=== PATIENT | male | born 1950 | race Caucasian/White ===

== ENCOUNTER → 2016-08-12 | Outpatient (CLI) | payer OTHER ==
[~2016-08-12] MED LIST: ASPEC325 PO; CLOP1TAB15 PO; CRDCD180 PO; HYDC25 PO; LISI40TA PO; PRAV40TA3 PO
--- NOTE | 2016-08-12 12:33 | DIAGNOSTIC IMAGING REPORT ---
CAROTID ARTERY ULTRASOUND CLINICAL HISTORY: Arteriosclerosis of carotid artery. COMPARISON STUDY: Carotid ultrasound May 13, 2014 and CTA of the neck July 23, 2015. TECHNIQUE: Real-time, grayscale, and color Doppler sonography of the carotid and vertebral arteries was performed. Images were viewed in the transverse and longitudinal planes. FINDINGS: There is extensive atherosclerotic plaque. Velocity measurements are listed below. COMMON CAROTID PEAK SYSTOLIC VELOCITY (CM/S): RIGHT 59 LEFT 101 ICA PEAK SYSTOLIC VELOCITY (CM/S): RIGHT 13 LEFT 187 There is diminished flow within the right internal carotid artery. By sonography, is difficult to differentiate vessel occlusion from slow flow. This appears to represent a change since CT of July 23, 2015 and is a new finding from ultrasound May 13, 2014. Antegrade flow is seen in the vertebral arteries. The external carotid arteries are patent but a elevated peak systolic velocity of 286 cm/s was noted within the right external carotid artery. Blood pressure in the right arm measured 181/100. Blood pressure in the left arm measured 179/95. IMPRESSION: 1. Minimal, if any, flow within the right internal carotid, a new finding since prior exams. By sonography, it is difficult to differentiate vessel occlusion from minimal flow due to severe stenosis. A CTA of the neck could be obtained. 2. Findings suggestive of 50-69% stenosis of the proximal left internal carotid artery. Electronically signed by: Mike Salinas M.D. 08/12/2016 12:31 PM Dictated Date/Time: 08/12/2016 12:25 PM
--- NOTE | 2016-08-18 07:13 | CODING QUERY MEDICAL NECESSITY ---
SUPPORTING DIAGNOSIS NEEDED A supporting diagnosis is required for the test/procedure performed on this patient in order for us to be reimbursed by the patient's insurance. Please provide a supporting diagnosis for the following test/procedure listed below next to the test name along with your signature. *If there is no additional diagnosis for this patient that would support the following test/procedure please document that below next to the test/procedure. Test(s)/Procedure(s) that require a supporting diagnosis: * CAROTID DOPPLR DUPLEX NECK DIAGNOSIS: * DOS: 08/12/16 Provider Signature: Date: Thank you Deepthi Ortega Health Information Management Once completed, please kindly fax back to [phone] For questions please call [phone]
== END | disposition home or self-care (01) ==
LOC: C.ULTRBC 11:51
PROVIDERS: ATTEND Internal Medicine
DX: I65.29 Occlusion and stenosis of unspecified carotid artery (principal)

== ENCOUNTER → 2016-08-18 | Outpatient (CLI) | payer OTHER ==
[~2016-08-18] MED LIST changes: +OPTIRAY 320 IV PRN
--- NOTE | 2016-08-18 09:07 | DIAGNOSTIC IMAGING REPORT ---
NECK CTA HISTORY: Carotid artery stenosis. Follow-up. TECHNIQUE: Multiaxial CT images of the neck were performed following the intravenous administration of contrast to evaluate the major cervical vessels. Maximum intensity projection images were also obtained. All measurements were calculated based on NASCET criteria. COMPARISON STUDY: Neck CTA 07/23/2015. Carotid Doppler 08/12/2016. FINDINGS: The aortic arch and proximal great vessels are widely patent. Bilateral common carotid arteries are patent. Mild stenosis at the origin of the right external carotid artery. The right internal carotid artery is completely occluded. No significant stenosis within the left external carotid artery. Approximately 60 % focal stenosis at the origin of the left internal carotid artery/carotid bulb. This is best seen on axial image 266 of 413. The mid to distal left internal carotid artery is patent. Multifocal moderate stenosis of the focal moderate to severe stenosis within the distal left vertebral artery. The left vertebral artery is hypoplastic in comparison to the right. Mild calcified plaque within the dominant proximal right vertebral artery without significant stenosis. Moderate focal stenosis within the distal right vertebral artery of approximately 60-70%. This is similar to the prior study. Degenerative changes within the cervical spine. The visualized lungs are clear. No cervical lymphadenopathy. IMPRESSION: 1. Complete occlusion of the right internal carotid artery which corresponds to the recent carotid Doppler study abnormality. This is new from the 2016 CTA. 2. Approximately 60% focal stenosis at the origin of the left internal carotid artery which is not significantly changed. 3. Moderate focal stenosis within the distal right vertebral artery and multifocal moderate to severe stenosis within the distal left vertebral artery. This is not significantly changed. Electronically signed by: Jim White M.D. 08/18/2016 9:05 AM Dictated Date/Time: 08/18/2016 8:43 AM
== END | disposition home or self-care (01) ==
LOC: C.CTS 07:45
PROVIDERS: ATTEND Internal Medicine
DX: I65.23 Occlusion and stenosis of bilateral carotid arteries (principal); I77.1 Stricture of artery

== ENCOUNTER → 2016-08-22 | Outpatient (CLI) | payer OTHER ==
[~2016-08-22] MED LIST changes: -OPTIRAY 320 IV PRN
[2016-08-22 12:19] LABS: BLOOD UREA NITROGEN 14 mg/dl (7-18); BUN/CREATININE RATIO 14.7 (10-20); CALCIUM 8.9 mg/dl (8.5-10.1); CARBON DIOXIDE 30 mmol/L (21-32); CHLORIDE 102 mmol/L (98-107); CREATININE 0.98 mg/dl (0.60-1.40); GLUCOSE 145 mg/dl (70-99); POTASSIUM 3.1 mmol/L (3.5-5.1); SODIUM 140 mmol/L (136-145)
== END | disposition home or self-care (01) ==
LOC: C.LABBFT 07:48
PROVIDERS: ATTEND Internal Medicine
DX: I10 Essential (primary) hypertension (principal); E11.9 Type 2 diabetes mellitus without complications

== ENCOUNTER → 2017-02-20 | Outpatient (CLI) | payer OTHER ==
--- NOTE | 2017-02-20 10:36 | DIAGNOSTIC IMAGING REPORT ---
ULTRASOUND OF THE CAROTID ARTERIES CLINICAL HISTORY: I65.29 Arteriosclerosis of carotid ogrvel4D F.UP., CTA 08-19-16 COMPARISON STUDY: 08/12/2016 TECHNIQUE: Real-time, grayscale, and color Doppler sonography of the carotid arteries was performed. Imaging reviewed in the transverse and longitudinal planes. NASCET criteria was utilized for stenosis calcification. FINDINGS: There is mild to moderate atherosclerotic plaque present . No flow is visualized within the right internal carotid artery. The peak systolic velocity within the right common carotid artery was 60 cm/s. The peak systolic velocity within the left internal carotid artery is 184 cm/sec. The systolic velocity ratio left internal to common carotid artery is 1.9. Antegrade flow is seen in the vertebral arteries. The external carotid arteries are patent. Blood pressure in the right arm measured 158 mm/Hg. Blood pressure in the left arm measured 149 mm/Hg. IMPRESSION: 1. Occlusion of the right internal carotid artery 2. 50-69% stenosis of the right internal carotid artery. Electronically signed by: Gurpreet Julian M.D. 02/20/2017 10:34 AM Dictated Date/Time: 02/20/2017 10:32 AM
== END | disposition home or self-care (01) ==
LOC: C.ULTR 09:34
PROVIDERS: ATTEND Surgery
DX: I65.29 Occlusion and stenosis of unspecified carotid artery (principal)

== ENCOUNTER 2024-11-26 07:00 | Inpatient (IN) ==
--- NOTE | 2024-11-20 16:12 | Anesthesiology Consultation ---
Date of Service November 20, 2024 Assessment & Plan (1) Encounter for pre-operative examination: Plan - check BSG am DOS. - PCP clearance 10/29/24 MN: "...He is acceptable risk for surgery. Does carry above average risk for infection because of diabetes which is improved from prior levels. He has cardiac workup he notes. Noted known aortic stenosis. No difficulties getting up 2 flights of steps. No contraindications to procedure... Increased pain and swelling, with resolution redness, notes he gets gout flairs in right knee. Suspect gout flair, we will get uric acid level to ensure proper titration of his allopurinol. We will get orthopedic referral as well. Recommend to use soft brace for stability. 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 Chart Review Chart Review: Acceptable Risk for Surgery and Patient NOT seen in Pre Admission Testing History Surgery Operation Date: 11/26/24 12:30 Proposed Procedures p Left Transcarotid Artery Revascularization - Jamshid Cat MD Height/Weight Height: 5 ft 9 in Weight: 92.986 kg Allergies Allergy/AdvReac Type Severity Reaction Status Date / Time bee venom protein (honey bee) Allergy Unknown Unknown Rxn Verified 11/20/24 15:20 Iodinated Contrast Media Allergy nausea, Verified 11/20/24 15:20 "made him stagger" Medications Home Medications Medication Instructions Recorded Confirmed Last Taken aspirin 81 mg tablet,delayed 81 mg PO QAM 02/25/22 11/20/24 Unknown release metformin 1,000 mg tablet 1,000 mg PO BIDWMEAL #180 tabs 08/02/24 11/20/24 Unknown mecobalamin (vitamin B12) 1,000 1,000 mcg PO DAILY 08/06/24 11/20/24 Unknown mcg chewable tablet spironolactone 25 mg tablet 25 mg PO QAM #90 tabs 09/30/24 11/20/24 Unknown olmesartan 40 mg tablet 40 mg PO DAILY #90 tabs 10/24/24 11/20/24 Unknown allopurinol 300 mg tablet 300 mg PO DAILY #90 tabs 10/31/24 11/20/24 Unknown diltiazem HCl 90 mg tablet 180 mg PO BID 11/20/24 11/20/24 Unknown glipizide 2.5 mg tablet, extended 2.5 mg PO QPM 11/20/24 11/20/24 Unknown release 24 hr rosuvastatin 20 mg tablet 20 mg PO QPM 11/20/24 11/20/24 Unknown Past Medical History Medical History (Updated 11/20/24 @ 16:11 by Kailyn Teresa PA-C) Arteriosclerosis of carotid artery "right ICA chronic occlusion, and severe left ICA occlusion" per [facility] vascular record Diabetes mellitus, 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 History of hypertension History of TIA (transient ischemic attack) (1999) no residual effects Hx of aortic valve stenosis moderate Hx of gout Hx of hypercholesterolemia Past Family History Family History Father Hypertension Hyperlipidemia Uncle Diabetes Denies family history of Ovarian cancer Prostate cancer Coronary heart disease Myocardial infarction Breast cancer Lung cancer Colorectal cancer Past Surgical History Surgical History No history of previous surgery Social History Smoking Status: Former smoker tobacco type: cigarettes Do You Dip or Chew Tobacco: Yes (occasional chew; advised) Smoking End Date: Hx Alcohol Use: Yes Alcohol type: beer alcohol intake frequency: other Alcohol Intake Frequency Comment: 1-2 beers/month Hx Substance Use: No substance use type: does not use Lab Results Anesthesia Preop Results Results Anesthesia Widget: WBC 12.24 K/ul (4.8-10.8) H 10/29/24 Hgb 12.8 g/dl (14.0-18.0) L 10/29/24 Hct 39.3 % (42.0-52.0) L 10/29/24 Plt 250 K/uL (130-400) 10/29/24 Na 136 mmol/L (136-145) 10/24/24 K 4.7 mmol/L (3.5-5.1) 10/24/24 Cl 104 mmol/L (98-107) 10/24/24 CO2 25 mmol/L (21-32) 10/24/24 BUN 23 mg/dl (6-23) 10/24/24 Creat 1.10 mg/dl (0.6-1.4) 10/24/24 Glucose Level 160 mg/dl (70-99(Fasting)) H 10/24/24 PT 10.0 Seconds (9.0-12.0) 10/24/24 PTT 25 Seconds (21-31) 10/24/24 INR 0.9 (0.9-1.1) 10/24/24 HA1c 8.0 % (4.5-5.6) H 10/22/24 Blood Type O Positive 10/24/24 Antibody Screen NEGATIVE 10/24/24 Testing Electrocardiogram Date: 10/24/24 Sinus bradycardia, rate 54 bpm RBBB Chest X-Ray Date: 10/24/24 No acute findings. Echocardiogram Date: 11/04/24 EF 60-65% Normal LV wall motion Moderate valvular aortic stenosis (ILIANA 1.2 cm2, mean pressure gradient 25 mmHg) Borderline LVH and RVH Mild pulmonary regurgitation Grade I diastolic dysfunction Other Testing Neck CTA 10/22/24 1. Chronic occlusion of the right internal carotid artery. 2. Atherosclerosis of the left carotid bulb causes 70% stenosis at the origin of the left ICA. 3. Progressively worsened atherosclerosis involves the V4 segments of the vertebral arteries causing multifocal high-grade stenoses. Carotid doppler 07/09/24 1. Severe variable-sized calcified and soft plaques are again seen along bilateral common carotid arteries, carotid bulb, and their branches. 2. Again noted chronic occlusion of right ICA. 3. Severe stenosis of the left ICA is again noted with more than 70% stenosis. 4. Moderate stenosis of bilateral external carotid arteries is again seen. 5. CT angiography correlation is suggested. 6. No gross interval changes are seen, as compared to the prior study.
[2024-11-26] MEDS ORDERED: LIDOCAINE 2% 2 ML VIAL/AMP(20MG/ML) INFIL ONE (07:38)
[2024-11-26] MEDS ORDERED: DEXAMETHASONE SOD INJ 4 MG/ML VIAL ONE (07:38)
[2024-11-26] MEDS ORDERED: ONDANSETRON INJ 2 MG/ML 2 ML VIAL ONE (07:38)
[2024-11-26] MEDS ORDERED: PROPOFOL IV EMULSION 10 MG/ML 20 ML VIAL IV ONE (07:39)
[2024-11-26] MEDS ORDERED: MIDAZOLAM HCL 1 MG/ML 2ML VIAL ONE (07:39)
--- NOTE | 2024-11-26 07:43 | History & Physical Report ---
Date of Service November 26, 2024 Assessment & Plan (1) Stenosis of left internal carotid artery: Plan: Patient admitted for a left tcar. I have discussed the risks options and benefits of the procedure with the patient. The patient understands the risks options and benefits and agrees to the procedure. History of Present Illness Chief Complaint: Left carotid stenosis Primary Care Provider: Jaron Sandoval DO Ms. Joshi is an elderly male who presents to Dr. Cat's vascular surgery clinic today for a follow-up visit to discuss CTA of the neck. Testing was recommended after carotid ultrasound imaging had indicated an increased degree of stenosis of his left ICA. He has a known right ICA occlusion. Patient continues to deny any new symptoms of cerebrovascular insufficiency including amaurosis, unilateral extremity weakness numbness or tingling, difficulty speaking or swallowing, facial droop, sudden onset confusion. His only complaint at this time is pain warmth and mild redness of his right knee which has been present for a few weeks. He states that he has a history of gout, but is unsure if this is what is going on. He denies any fevers chills nausea vomiting at home. He does have chronic joint pain at baseline. Allergies Allergy/AdvReac Type Severity Reaction Status Date / Time bee venom protein (honey bee) Allergy Unknown Unknown Rxn Verified 11/20/24 15:20 Iodinated Contrast Media Allergy nausea, Verified 11/20/24 15:20 "made him stagger" Home Medications Medication Instructions Recorded Confirmed Type aspirin 81 mg tablet,delayed 81 mg PO QAM 02/25/22 11/20/24 History release metformin 1,000 mg tablet 1,000 mg PO BIDWMEAL #180 tabs 08/02/24 11/20/24 Rx mecobalamin (vitamin B12) 1,000 1,000 mcg PO DAILY 08/06/24 11/20/24 History mcg chewable tablet spironolactone 25 mg tablet 25 mg PO QAM #90 tabs 09/30/24 11/20/24 Rx olmesartan 40 mg tablet 40 mg PO DAILY #90 tabs 10/24/24 11/20/24 Rx allopurinol 300 mg tablet 300 mg PO DAILY #90 tabs 10/31/24 11/20/24 Rx diltiazem HCl 90 mg tablet 180 mg PO BID 11/20/24 11/20/24 History glipizide 2.5 mg tablet, extended 2.5 mg PO QPM 11/20/24 11/20/24 History release 24 hr rosuvastatin 20 mg tablet 20 mg PO QPM 11/20/24 11/20/24 History Past Med/Surg History Problem List (Updated 11/26/24 @ 07:43 by Jamshid Cat MD) Stenosis of left internal carotid artery Encounter for pre-operative examination Right knee pain Vitamin B12 deficiency anemia Hypochromic anemia Occlusion and stenosis of left carotid artery Aortic stenosis, moderate 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 (Chronic) Right eye per exam 07/2020 Elevated liver transaminase level Arteriosclerosis of carotid artery (Acute) right ICA chronic occlusion, left ICA 5-69% November 2018 doppler Gout, joint (Acute) History of TIA (transient ischemic attack) (06/2009) Hypertension (Chronic) Hypercholesteremia (Chronic) Medical History Arteriosclerosis of carotid artery "right ICA chronic occlusion, and severe left ICA occlusion" per [facility] vascular record Hx of aortic valve stenosis moderate Hx of hypercholesterolemia History of hypertension History of TIA (transient ischemic attack) (1999) no residual effects Hx of gout Diabetes mellitus, 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 Surgical History No history of previous surgery Family History Father Hypertension Hyperlipidemia Uncle Diabetes Denies family history of Ovarian cancer Prostate cancer Coronary heart disease Myocardial infarction Breast cancer Lung cancer Colorectal cancer Social History Smoking Status: Former smoker Tobacco Type: Cigarettes and Smokeless Tobacco (Dip or Chew) Age Started Using Tobacco: 11; Age Quit Using Tobacco: 21; packs per day: 1; Smoking End Date: ; Second Hand Exposure: No; Do You Dip or Chew Tobacco: Yes (occasional chew; advised); Tobacco Cessation Education Requested by Patient: No Hx Alcohol Use: Yes Alcohol type: beer Alcohol Intake Frequency Comment: 2 beers a day Hx Substance Use: No Preferred Language: Kinyarwanda Communication Ability: Effective Visual Impairment: No Limitations Hearing Ability: Normal Water Plant Operator Required: No Beliefs That Will Affect Care: None marital status: / Current Living Situation: Alone current occupational status: retired current occupation: used to work as an qualified craft worker electrician How many Children do You have: 2 Other Information That Helps Us Care for You: No Feels Safe at Home: Yes Safety Concerns: Feels Safe At This Time Childhood Exposure to Second-Hand Smoke: No Diet: regular caffeine: Yes during the past year weight has: remained stable Dental Care, Regularly: Yes Physical Activity Frequency: Does not Exercise Seatbelt Use: always Sunscreen Use: No Assistive Devices: Denture - Upper and Glasses Assistive Devices Comment: upper partial denture Review of Systems All systems reviewed & are unremarkable except as noted in HPI & below Physical Exam Physical Exam: Constitutional: In general patient is a healthy-appearing well-nourished well- developed elderly male in no distress. Is alert and oriented without any focal deficits. His left carotid does demonstrate a faint bruit. His heart is regular, lungs are decreased but clear. Abdomen soft nontender with normoactive bowel sounds in upper quadrants. Distal pulses are +2. He has brisk capillary refill and no sign of distal ischemia. His right knee is swollen and warm to touch, without significant erythema noted. He does have +1 edema of the bilateral lower extremities at baseline.
[2024-11-26] MEDS ORDERED: ROCURONIUM BROMIDE 10 MG/ML 5 ML VIAL IV ONE (07:44)
[2024-11-26] MEDS ORDERED: GLYCOPYRROLATE 0.2 MG/ML VIAL ONE (08:36)
[2024-11-26 08:45] LABS: Anion Gap 11.0 (3-11); Blood Urea Nitrogen 25.0 mg/dl (6-23); Calcium 9.4 mg/dl (8.6-10.3); Carbon Dioxide 23.0 mmol/L (21-32); Chloride 101.0 mmol/L (98-107); Creatinine Clr Calc Pharmacy 63.2 ml/min; Glucose 299.0 mg/dl (70-99(Fasting)); Potassium 4.8 mmol/L (3.5-5.1); Sodium 135.0 mmol/L (136-145)
[2024-11-26] MEDS ORDERED: FLUMAZENIL 0.1 MG/1 ML 10 ML VIAL IV PRN (09:03)
[2024-11-26] MEDS ORDERED: ATROPINE SULFATE 0.1 MG/ML 10ML SYR IV PRN (09:03)
[2024-11-26] MEDS ORDERED: PROMETHAZINE HCL 6.25 MG in SODIUM CHLORIDE 0.9% 50 ML IV PRN (09:03)
[2024-11-26] MEDS: SODIUM CHLORIDE 0.9% 1,000 ML IV SCH ×2 (09:03→14:14)
[2024-11-26] MEDS ORDERED: ONDANSETRON INJ 2 MG/ML 2 ML VIAL IV PRN ×2 (09:03→12:59)
[2024-11-26] MEDS ORDERED: HYDROmorphone INJ 1 MG/ML SYRINGE IV PRN (09:03)
[2024-11-26] MEDS ORDERED: NALOXONE HCL 0.4 MG/1 ML VIAL/CARP IV PRN (09:03)
[2024-11-26] MEDS: INSULIN HUMAN REGULAR PER UNIT 10 UNITS in SYRINGE 0 ML IV STA ×2 (09:17→11:36)
[2024-11-26] MEDS: NovoLIN-R INSULIN PER UNIT CHARGE ONE ×2 (09:29→13:10)
[2024-11-26] MEDS ORDERED: ePHEDrine sulfate 50 MG/5 ML SYR ONE ×4 (09:47→10:33)
[2024-11-26] MEDS ORDERED: PHENYLEPHRINE 100MCG/ML 5ML SYR ONE ×2 (09:47→10:09)
[2024-11-26] MEDS ORDERED: SUGAMMADEX SODIUM 200 MG/2 ML VIAL IV ONE (10:17)
[2024-11-26] MEDS ORDERED: PROTAMINE SULFATE 10 MG/ML 5 ML VIAL IV ONE (10:17)
[2024-11-26] MEDS ORDERED: HEPARIN SOD (PORCINE) 1000 UNIT/ML ONE ×2 (10:26→10:34)
[2024-11-26] MEDS: BUPIVACAINE/EPINEPHRINE 0.5% MPF 1:200,000 30 ML VIAL ONE (10:55)
[2024-11-26] MEDS: GELATIN SPONGE SZ 100 ONE (10:56)
[2024-11-26] MEDS: THROMBIN FOR SOLN 20000 UNIT KIT ONE (10:56)
[2024-11-26] MEDS: ceFAZolin 330 MG/ML 1 GM VIAL ONE (10:56)
[2024-11-26] MEDS: VISIPAQUE IV ONE (11:04)
--- NOTE | 2024-11-26 11:36 | Procedure Note ---
Angiogram Post Procedure Fluoroscopy Time (minutes): 3.8 Radiation (mGy): 25 Contrast: 9 Post Operative Report Pre & Post Diagnosis Operation Date: 11/26/24 10:10 Pre-Op Diagnosis: Left Internal Carotid Aretery Stenosis Post-Op Diagnosis: Left Internal Carotid Aretery Stenosis I identified the patient and participated in the time-out.: Yes Procedure Operation Date: 11/26/24 10:10 Actual Procedures p Left Transcarotid Artery Revascularization(Left), Ultrasound localization of right common femoral vein - Jamshid Cat MD Surgeon Jamshid Cat MD License Distributor none Estimated Blood Loss 10 Findings Consistent with Post-Op Diagnosis Specimens none Anesthesia Type General Complications none Disposition Accompanied Patient To Recovery: No Disposition: Recovery Room Indications This is a 74-year-old gentleman with a right internal carotid artery occlusion. He was found to have a severe greater than 90% narrowing of his left internal carotid artery origin. Endarterectomy versus TCAR was recommended. He elected to go ahead with a TCAR. I have discussed the risks options and benefits of the procedure with the patient. The patient understands the risks options and benefits and agrees to the procedure. Description of Procedure The patient was taken to the operating room and placed in supine position. After general anesthesia was accomplished the groins and left side of the neck and chest were prepped and draped in a sterile manner. Timeout was performed and the patient was identified. A transverse incision was made just above the clavicle between the heads of the sternocleidomastoid. This is carried down to where the common carotid artery was identified. It was isolated. It was slung with umbilical tape. Next the U stitch was placed in the common carotid artery with a 5-0 Prolene suture. Patient was given 8000 heparin at that time. Ultrasound was then used to localize the right common femoral vein. The vein was patent and compressed easily. Under ultrasound guidance the right common femoral vein was punctured and the venous sheath was inserted. This was aspirated and flushed with heparinized saline. ACT at that time was 216. We did give another 2000 mL heparin. Repeat ACT at that time was 206. We then g ave another 3000 to heparin. ACT at that point was 237. There is no clots seen in the wound. We decided to go ahead with the procedure at that point. Using micropuncture technique the common carotid artery was punctured. The micro sheath was inserted to 3 cm. Injection was then done showing the bifurcation. There was a significant lesion seen at the origin of the internal carotid artery on the left side. We then inserted the J-wire left and short of the lesion. The micro sheath was removed and the TCAR sheath was inserted. Once it was in place and held against the artery it was sutured to the chest wall and the incision edge. We then flushed the tubing appropriately. The venous return to was clamped onto the TCAR sheath. It was flushed through and then attached to the venous inflow sheath in the left groin. Sheath was checked for flow. The saline cleared nicely. The common carotid artery was then clamped. Flow reversal was instituted.The flow reversal was again checked for flow and found to have good flow after clamping. We inserted a 4.5 x 25 balloon backloaded on the wire. The wire was passed through the lesion into the petrous portion of the internal carotid. The 4.5 balloon was then advanced to the lesion. Lesion was then predilated with a 4.5 mm balloon. Balloon was removed. We then inserted the 8/6 x 40 stent. This was deployed across the lesion without difficulty. The catheter was removed. Appeared to be still a slight amount of narrowing at the midportion of the stent. We then inserted a 5.5 x 35 balloon and redilated this area. Widely patent stent was then noted on fluoroscopy. The carotid was allowed to go 2 minutes with flow reversal. Completion angiogram was done at that time which showed a widely patent carotid stent. At that point the common carotid artery was unclamped. The venous return tubing was clamped and removed from the TCAR sheath. The blood was allowed to flow back into the venous system. The TCAR sheath was then removed and the 5-0 Prolene suture securely tied. The patient was given 25 mg of protamine. Hemostasis was noted of the puncture site. An ACT was then drawn. The ACT was 124. The sheath was pulled from the groin and pressure was applied. Wound was irrigated with saline solution. Adequate hemostasis was obtained of the wound. Once this was noted the wound was closed in usual fashion using a 3-0 Vicryl suture for the subcutaneous layer and katelin for the skin edges. Sterile dressings were applied to the wound. The patient left the operation room in satisfactory condition and tolerated the procedure well. All needle and sponge counts were correct at the end of the procedure. I attest to the content of the Intraoperative Record and any orders documented t herein. Any exceptions are noted below.
--- NOTE | 2024-11-26 12:39 | Anesthesiology Progress Note ---
Date of Service November 26, 2024 Anesthesia Post Procedure Vital Signs Vital Signs: Temp Pulse Resp BP BP BP Pulse Ox 11/26/24 12:20 80 17 103/46 L 120/59 L 92 11/26/24 12:10 36.5 C 82 15 102/46 L 110/58 L 92 11/26/24 12:00 84 16 107/46 L 112/56 L 92 11/26/24 11:50 86 15 116/61 107/46 L 93 11/26/24 11:40 87 18 113/61 111/47 L 94 11/26/24 11:30 91 H 15 108/47 L 102/60 93 11/26/24 11:23 36.0 C L 94 H 21 108/59 L 96 11/26/24 08:36 36.7 C 76 18 153/76 H 149/72 H 97 O2 Del Method 11/26/24 12:20 Room Air 11/26/24 12:10 Room Air 11/26/24 12:00 Room Air 11/26/24 11:50 Room Air 11/26/24 11:40 Room Air 11/26/24 11:30 Room Air 11/26/24 11:23 Room Air 11/26/24 08:36 Room Air Transfer of Care Handoff Completed per policy Notes Mental Status: alert / awake / arousable Patient Amnestic to Procedure: Yes Nausea / Vomiting: adequately controlled Pain: adequately controlled Airway Patency, RR, SpO2: stable & adequate BP & HR: stable & adequate Hydration State: stable & adequate Anesthetic Complications: no major complications apparent
[2024-11-26] MEDS ORDERED: PHARMACY GLYCEMIC MGMT CONSULT PRN (12:59)
[2024-11-26] MEDS ORDERED: PHENYLEPHRINE/NSS 25 MG/250 ML BAG IV PRN (12:59)
[2024-11-26] MEDS ORDERED: STAT IV Infusion **Titration per Protocol STA (12:59)
--- NOTE | 2024-11-26 13:25 | Pharmacy Report ---
Pharmacy Glycemic Short Note 2 - Date of Service November 26, 2024 - Glycemic Short BSG Results (Last 24 hours): 11/26/24 11/26/24 11/26/24 08:16 08:54 11:25 Glucose 299 H POC Glucose 280 H 257 H 11/26/24 11/26/24 12:04 12:09 Glucose POC Glucose 271 H 268 H OUTPATIENT ANTIDIABETIC REGIMEN: * Metformin * Glipizide * HbA1c 8.0% on 10/22/24 ASSESSMENT: * 74 yo M w T2DM and no prior inpatient stays at [facility] admitted for L ICA stenosis on 11/26 and is now POD 0, ordered a diet, and had dexamethasone 8 mg IV overriden in OR * Intraoperative BSG's elevated - two doses of 10 units regular insulin IV ordered/administered. First @ 0917 for BSG 280 mg/dL. Second @ 1136 for BSG 257 mg/dL. Post-op BSG remains elevated at 268 mg/dL despite these doses. * Anticipate insulin resistance given above BSG trend, plus steroids administered. Will order weight-based severe stress estimate Novolog, but with a slightly looser correctional parameter. Will include two overnight checks. Will also order more aggressive Lantus dose at full daily dose of moderate stress estimate. PLAN FOR INPATIENT GLYCEMIC CONTROL: * Hold outpatient oral diabetes medications * Basal insulin * Lantus 30 units SQ x1 now * Bolus insulin * NovoLog per scale ACHS or Q6hrs while NPO * Goal Range: Low 110 mg/dL - High 140 mg/dL * Correction Factor: 20 mg/dL/unit * Nutritional / Prandial insulin per carb ratio of 1 unit per 6 grams CHO consumed
--- NOTE | 2024-11-26 13:33 | Critical Care Consultation ---
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 Carotid stenosis s/p left TCAR -Left TCAR 11/26/24 -Neurovascular checks per protocol. -Cont ASA and plavix -Maintain SBP > 100. If below goal start phenylephrine gtt. Hyperlipidemia -Cont rosuvastatin Gout -Continue allopurinol Diabetes mellitus; Stress Hyperglycemia -On Metformin and glipizide at home. Hold at this time. -Maintain BG < 140-180 -Hyperglycemia protocol ordered Hypertension -Maintain SBP > 100 -PRN phenylephrine gtt ordered if SBP < 100. No currently needing at this time. -Cardizem to start 2100 this evening. -Losartan to start 11/27. Thank you for allowing us to participate in this patient's care. Please feel free to reach out with any questions or concerns. Supervising Physician Co-Signing Physician Notes Patient seen and examined. EMR reviewed. Discussed with patient and family at bedside as well as with critical care RUBÉN. Agree with assessment and plan as noted. Will continue to monitor in the ICU post carotid intervention to ensure adequate blood pressure control and serial neurological exams. Disposition per vascular surgery. History of Present Illness Reason for Consultation: Post evaluation and management of left TCAR Attending Physician: Jamshid Cat MD History of Present Illness Jeremiah Dallas is a 74-year-old male with past medical history of carotid artery stenosis with known right ICA occlusion, aortic stenosis, HLD, HTN, TIA, Gout, DMII; ho presnted to [facility] on 11/26/2024 for an elective left TCAR. Patient has a known history of carotid disease with right carotid chronic occlusion. The patient had a follow up CTA after carotid Doppler showed severe stenosis of the left ICA approximately 90%. The CTA showed Atherosclerosis of the left carotid bulb causes 70% stenosis at the origin of the left ICA. Patient was seen in Dr. Cat's clinic in October 2024 at which time he was presented with the surgical options for which Mr. Dallas elected to move forward with left TCAR surgery. Patient presented to [facility] on 11/26/24 for left TCAR. Per report the procedure went well without complication. He was extubated and brought to the ICU post op for evaluation and management of severe left carotid stenosis s/p left TCAR. Allergies Allergy/AdvReac Type Severity Reaction Status Date / Time bee venom protein (honey bee) Allergy Unknown Unknown Rxn Verified 11/26/24 08:18 Iodinated Contrast Media Allergy nausea, Verified 11/26/24 08:18 "made him stagger" Home Medications Medication Instructions Recorded Confirmed Type aspirin 81 mg tablet,delayed 81 mg PO QAM 02/25/22 11/26/24 History release metformin 1,000 mg tablet 1,000 mg PO BIDWMEAL #180 tabs 08/02/24 11/26/24 Rx mecobalamin (vitamin B12) 1,000 1,000 mcg PO DAILY 08/06/24 11/26/24 History mcg chewable tablet spironolactone 25 mg tablet 25 mg PO QAM #90 tabs 09/30/24 11/26/24 Rx olmesartan 40 mg tablet 40 mg PO DAILY #90 tabs 10/24/24 11/26/24 Rx allopurinol 300 mg tablet 300 mg PO DAILY #90 tabs 10/31/24 11/26/24 Rx diltiazem HCl 90 mg tablet 180 mg PO BID 11/20/24 11/26/24 History glipizide 2.5 mg tablet, extended 2.5 mg PO QPM 11/20/24 11/26/24 History release 24 hr rosuvastatin 20 mg tablet 20 mg PO QPM 11/20/24 11/26/24 History clopidogrel 75 mg tablet 75 mg PO 1XD 11/26/24 11/26/24 History Patient History Medical History Arteriosclerosis of carotid artery "right ICA chronic occlusion, and severe left ICA occlusion" per [facility] vascular record Hx of aortic valve stenosis moderate Hx of hypercholesterolemia History of hypertension History of TIA (transient ischemic attack) (1999) no residual effects Hx of gout Diabetes mellitus, 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 Surgical History No history of previous surgery Family History Father Hypertension Hyperlipidemia Uncle Diabetes Denies family history of Ovarian cancer Prostate cancer Coronary heart disease Myocardial infarction Breast cancer Lung cancer Colorectal cancer Social History Smoking Status: Former smoker Tobacco Type: Cigarettes and Smokeless Tobacco (Dip or Chew) Age Started Using Tobacco: 11; Age Quit Using Tobacco: 21; packs per day: 1; Smoking End Date: ; Second Hand Exposure: No; Do You Dip or Chew Tobacco: Yes (occasional chew; advised); Tobacco Cessation Education Requested by Patient: No Hx Alcohol Use: Yes Alcohol type: beer Alcohol Intake Frequency Comment: 2 beers a day Hx Substance Use: No Preferred Language: Belarusian Communication Ability: Effective Visual Impairment: No Limitations Hearing Ability: Normal Energy Rater Required: No Beliefs That Will Affect Care: None marital status: / Current Living Situation: Alone current occupational status: retired current occupation: used to work as an master electrician How many Children do You have: 2 Other Information That Helps Us Care for You: No Feels Safe at Home: Yes Safety Concerns: Feels Safe At This Time Childhood Exposure to Second-Hand Smoke: No Diet: regular caffeine: Yes during the past year weight has: remained stable Dental Care, Regularly: Yes Physical Activity Frequency: Does not Exercise Seatbelt Use: always Sunscreen Use: No Assistive Devices: Denture - Upper and Glasses Assistive Devices Comment: upper partial denture Review of Systems Review of Systems: All systems reviewed & are unremarkable except as noted in HPI & below Physical Exam Physical Exam: VITALS: Reviewed. WEIGHT/BMI reviewed. GEN: Stated age appearing, well-developed, NAD. PSYCH: Good Judgment. AOx3. Normal memory, mood, and affect. HEENT -Head: NC/AT; -Eyes: PERRL, EOMI. No discharge or redn ess; -Ears: External ears are normal -Nose: Normal nares. -Mouth and throat: MMM. Normal gums, muc bradley, palate,. Good dentition. NECK: Supple, with no masses. CV: RRR, no m/r/g. LUNGS: CTAB, no w/r/c. ABD: Soft, NT/ND, NBS, no masses or organomegaly. : Rodriguez draining yell clear urine. SKIN: Warm, well perfused. No skin rashes or abnormal lesions. MSK: No deformities, Normal gait. EXT: No clubbing, cyanosis, or edema. NEURO: Face symmetric, speech clear, normal muscle strength and tone. no focal deficits. Results & Data Results & Data Vital Signs (Past 12 Hours) Vital Signs Temp Pulse Pulse Resp BP BP BP 11/26/24 13:00 114/59 L 11/26/24 13:00 77 16 11/26/24 12:58 79 11/26/24 12:54 79 18 11/26/24 12:34 121/57 L 11/26/24 12:20 80 17 103/46 L 11/26/24 12:10 36.5 C 82 15 102/46 L 11/26/24 12:00 84 16 107/46 L 11/26/24 11:50 86 15 116/61 11/26/24 11:40 87 18 113/61 11/26/24 11:30 91 H 15 108/47 L 11/26/24 11:23 36.0 C L 94 H 21 11/26/24 08:36 36.7 C 76 18 153/76 H BP Pulse Ox O2 Del Method 11/26/24 13:00 11/26/24 13:00 92 Room Air 11/26/24 12:58 11/26/24 12:54 91 11/26/24 12:34 11/26/24 12:20 120/59 L 92 Room Air 11/26/24 12:10 110/58 L 92 Room Air 11/26/24 12:00 112/56 L 92 Room Air 11/26/24 11:50 107/46 L 93 Room Air 11/26/24 11:40 111/47 L 94 Room Air 11/26/24 11:30 102/60 93 Room Air 11/26/24 11:23 108/59 L 96 Room Air 11/26/24 08:36 149/72 H 97 Room Air Critical Care Results & Data Vital Signs (Past 12 Hours) Vital Signs Temp Pulse Pulse Resp BP BP BP 11/26/24 13:30 77 19 11/26/24 13:30 124/60 11/26/24 13:27 11/26/24 13:24 76 17 11/26/24 13:00 114/59 L 11/26/24 13:00 114/59 L 11/26/24 13:00 77 16 11/26/24 12:58 79 11/26/24 12:54 79 18 11/26/24 12:34 121/57 L 11/26/24 12:20 80 17 103/46 L 11/26/24 12:10 36.5 C 82 15 102/46 L 11/26/24 12:00 84 16 107/46 L 11/26/24 11:50 86 15 116/61 11/26/24 11:40 87 18 113/61 11/26/24 11:30 91 H 15 108/47 L 11/26/24 11:23 36.0 C L 94 H 21 11/26/24 08:36 36.7 C 76 18 153/76 H BP Pulse Ox O2 Del Method 11/26/24 13:30 92 Room Air 11/26/24 13:30 11/26/24 13:27 Room Air 11/26/24 13:24 92 Room Air 11/26/24 13:00 Room Air 11/26/24 13:00 11/26/24 13:00 92 Room Air 11/26/24 12:58 11/26/24 12:54 91 11/26/24 12:34 11/26/24 12:20 120/59 L 92 Room Air 11/26/24 12:10 110/58 L 92 Room Air 11/26/24 12:00 112/56 L 92 Room Air 11/26/24 11:50 107/46 L 93 Room Air 11/26/24 11:40 111/47 L 94 Room Air 11/26/24 11:30 102/60 93 Room Air 11/26/24 11:23 108/59 L 96 Room Air 11/26/24 08:36 149/72 H 97 Room Air Lab & Micro Results (Past 24 Hours) No Data to Display Na 135 mmol/L (136-145) L 11/26/24 K 4.8 mmol/L (3.5-5.1) 11/26/24 Cl 101 mmol/L (98-107) 11/26/24 CO2 23 mmol/L (21-32) 11/26/24 Anion Gap 11 (3-11) 11/26/24 BUN 25 mg/dl (6-23) H 11/26/24 Creatinine 1.13 mg/dl (0.6-1.4) 11/26/24 BUN/Creatinine Ratio 22.1 (10-20) H 11/26/24 Glu 299 mg/dl (70-99(Fasting)) H 11/26/24 Ca 9.4 mg/dl (8.6-10.3) 11/26/24 Calcium Level 9.4 mg/dl (8.6-10.3) 11/26/24 08:16 I & O Totals 24 Hours 11/25/24 11/26/24 11/27/24 06:59 06:59 06:59 Intake Total 1400 / 1400 Output Total 10 / 10 Balance 1390 / 1390 Cumulative 10/25/24 08:24 thru 11/26/24 12:18 Intake Total 1400 Output Total 10 Balance 1390 RT Ventilator Mngmt (Last Documented) Ventilator Ordered Settings Respiratory Rate 19 11/26/24 13:30 Ventilator - PT Measurements Respiratory Rate 19 Coding Level of Care Code 69587 INT INP/OBS CARE 2/55MIN Diagnoses Occlusion and stenosis of left carotid artery I65.22 Stenosis of left internal carotid artery I65.22 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
[2024-11-26] MEDS: INSULIN ASPART PER UNIT CHARGE SC SCH ×2 (14:13→23:39)
[2024-11-26] MEDS: CLOPIDOGREL BISULFATE 75 MG TAB PO SCH (14:13)
[2024-11-26] MEDS: LANTUS PER UNIT CHARGE SC ONE (14:43)
[2024-11-26] MEDS: ROSUVASTATIN CALCIUM 20 MG TAB PO SCH (20:35)
[2024-11-26] MEDS ORDERED: glipiZIDE ER 2.5 MG TABCR PO SCH (21:00)
--- NOTE | 2024-11-27 07:11 | Critical Care Progress Note ---
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 Postoperatively he has done well with hemodynamic stability and no neurological complaints. Recommendations: Carotid stenosis s/p left TCAR Doing well clinically. Discontinue arterial line. Management per vascular surgery. Continue antiplatelet agents Hyperlipidemia -Cont rosuvastatin Gout -Continue allopurinol Diabetes mellitus; Stress Hyperglycemia Resume home regiment. Hypertension Continue home medications Patient is doing well clinically. His critical care issues have resolved. Critical care will sign off. Disposition per vascular surgery. Feel free to contact us with questions or concerns Admission and Anticipated Discharge Date Admission Date: November 26, 2024 Subjective Patient seen and examined. EMR reviewed. Discussed with bedside critical care nurse in multidisciplinary rounds as well as with overnight critical care RUBÉN. The patient is awake alert and conversant. He sitting up in the chair. He is doing well. He denies any neck pain. No voice changes or difficulty swallowing. No new neurological complaints. Is been hemodynamically stable. He overall feels well Review of Systems 2 Review of Systems: All systems reviewed & are unremarkable except as noted in Subjective Physical Exam 2 Constitutional: WD/WN, vitals as above Neck: trachea midline, no thyromegaly Respiratory: normal respiratory effort, lungs clear to auscultation Cardiovascular: RRR, no murmur, no edema Gastrointestinal (Abdomen): normal bowel sounds, soft, nontender, no hepatosplenomegaly Musculoskeletal: Extremities: extremities normal to inspection Skin: no rashes, warm and dry Neurologic: Nonfocal exam Lymphatic: no cervical lymphadenopathy Results & Data Results & Data Vital Signs (Past 12 Hours) Vital Signs Temp Pulse Pulse Resp BP BP BP 11/27/24 06:00 58 L 16 127/55 L 122/76 11/27/24 05:02 106/61 11/27/24 05:00 63 21 11/27/24 04:37 36.4 C L 11/27/24 04:01 99/56 L 11/27/24 03:54 54 L 16 11/27/24 03:30 65 17 11/27/24 03:00 118/65 11/27/24 02:57 59 L 15 11/27/24 02:33 61 12 11/27/24 02:00 61 13 11/27/24 01:09 69 15 11/27/24 01:03 116/69 11/27/24 00:27 72 13 11/27/24 00:00 118/63 11/27/24 00:00 65 11/26/24 23:30 121/62 11/26/24 22:54 66 17 11/26/24 22:00 71 15 11/26/24 21:36 80 12 11/26/24 21:03 75 15 11/26/24 20:03 86 16 11/26/24 20:00 36.4 C L 11/26/24 19:20 79 Pulse Ox O2 Del Method 11/27/24 06:00 95 Room Air 11/27/24 05:02 11/27/24 05:00 96 11/27/24 04:37 11/27/24 04:01 11/27/24 03:54 94 11/27/24 03:30 93 11/27/24 03:00 11/27/24 02:57 95 11/27/24 02:33 94 11/27/24 02:00 94 11/27/24 01:09 97 11/27/24 01:03 11/27/24 00:27 93 11/27/24 00:00 11/27/24 00:00 11/26/24 23:30 11/26/24 22:54 95 11/26/24 22:00 95 11/26/24 21:36 11/26/24 21:03 11/26/24 20:03 97 Room Air 11/26/24 20:00 11/26/24 19:20 Laboratory Results 11/26/24 08:16 Diagnostic Findings No new imaging Coding Level of Care Code 39844 SUB INP/OBS CARE 2/35MIN Diagnoses Occlusion and stenosis of left carotid artery I65.22 Stenosis of left internal carotid artery I65.22 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
[2024-11-27] MEDS ORDERED: LANTUS PER UNIT CHARGE SC ONE (07:45)
[2024-11-27] MEDS: LANTUS PER UNIT CHARGE SC ONE (08:19)
[2024-11-27] MEDS: SPIRONOLACTONE 25 MG TAB PO SCH (08:22)
[2024-11-27] MEDS: CYANOCOBALAMIN (B-12) 500 MCG TABLET PO SCH (08:22)
[2024-11-27] MEDS: LOSARTAN POTASSIUM 50 MG TAB PO SCH (08:22)
[2024-11-27] MEDS: ASPIRIN 81 MG ECTAB PO SCH (08:22)
[2024-11-27 09:26] VITALS: TEMP 97.9
[2024-11-27] MEDS: PNEUMOCOCCAL VACCINE (PCV20) 20-VAL CONJ-DIP CRM/PF 0.5 ML SYR IM ONE (12:36)
--- NOTE | 2024-11-27 12:38 | Pharmacy Report ---
Pharmacy Glycemic Short Note 2 - Date of Service November 27, 2024 - Glycemic Short BSG Results (Last 24 hours): 11/26/24 11/26/24 11/26/24 13:56 15:48 20:35 POC Glucose 279 H 258 H 295 H 11/26/24 11/27/24 11/27/24 23:36 04:34 07:15 POC Glucose 232 H 228 H 193 H 11/27/24 11:17 POC Glucose 185 H OUTPATIENT ANTIDIABETIC REGIMEN: * Metformin * Glipizide * HbA1c 8.0% on 10/22/24 ASSESSMENT: 11/27 * BSG's peaked at HS yesterday evening, close to 300 mg/dL and have been trending down since then, albeit slowly. Residual effects of dexamethasone from yesterday anticipated to persist somewhat today. Will therefore increase Lantus (although not significantly since steroid effects may dissipate overnight). Will tighten correction factor. Will leave CHO ratio as-is since BSG's did trend down from breakfast to lunch and anticipate that tighten correction per above may be all that's needed 11/26 * 74 yo M w T2DM and no prior inpatient stays at [facility] admitted for L ICA stenosis on 11/26 and is now POD 0, ordered a diet, and had dexamethasone 8 mg IV overriden in OR * Intraoperative BSG's elevated - two doses of 10 units regular insulin IV ordered/administered. First @ 0917 for BSG 280 mg/dL. Second @ 1136 for BSG 257 mg/dL. Post-op BSG remains elevated at 268 mg/dL despite these doses. * Anticipate insulin resistance given above BSG trend, plus steroids administered. Will order weight-based severe stress estimate Novolog, but with a slightly looser correctional parameter. Will include two overnight checks. Will also order more aggressive Lantus dose at full daily dose of moderate stress estimate. PLAN FOR INPATIENT GLYCEMIC CONTROL: * Hold outpatient oral diabetes medications * Basal insulin * Lantus 35 units SQ x1 this AM * Bolus insulin * NovoLog per scale ACHS or Q6hrs while NPO * Goal Range: Low 110 mg/dL - High 140 mg/dL * Correction Factor: 15 mg/dL/unit * Nutritional / Prandial insulin per carb ratio of 1 unit per 6 grams CHO consumed
[2024-11-27 14:06] VITALS: BP 101/57; PULSE 58; RESP 19; O2SAT 97
--- NOTE | 2024-11-27 14:19 | Surgery Progress Note ---
Date of Service November 27, 2024 Assessment & Plan (1) Stenosis of left internal carotid artery: Plan: Pt doing well POD #1 after L TCAR. Stable VS and feeling well. OK for d/c home today. Admission and Anticipated Discharge Date Admission Date: November 26, 2024 Subjective 74 yo m POD #1 after uncomplicated L TCAR, seen in f/u today. Pt states feeling well. Denies any complaints other than sore throat. Review of Systems Review of Systems: All systems reviewed & are unremarkable except as noted in HPI & below Physical Exam Constitutional: WD/WN, vitals as above cooperative and comfortable; not in distress Neck: L supraclavicular incision C/D/I with katelin. +mild tenderness, swelling. No bleeding or discharge. Respiratory: normal respiratory effort, lungs clear to auscultation Auscultation: + diminished lung sounds Cardiovascular: Rate/Rhythm: regular rate and regular rhythm Vessels: posterior tibial pulses present, dorsalis pedis pulses present, brachial pulses present and radial pulses present; + abnormal peripheral pulses Extremities: normal capillary refill; no edema Gastrointestinal (Abdomen): Inspection/Auscultation: abdomen normal to inspection and normal bowel sounds Percussion/Palpation: abdomen soft; abdomen nontender Musculoskeletal: no cyanosis or clubbing, extremities motor strength 5/5 Skin: no rashes, warm and dry (R groin puncture without hematoma or erythema) Neurologic: moves all extremities and awake; no focal motor deficits and not confused Psychiatric: A+Ox3, euthymic affect Results & Data Vital Signs (Past 12 Hours) Vital Signs Temp Pulse Pulse Resp BP BP BP 11/27/24 14:00 58 L 19 101/57 L 11/27/24 13:06 60 16 11/27/24 12:15 62 15 11/27/24 12:00 117/57 L 11/27/24 11:48 67 17 11/27/24 11:06 56 L 20 11/27/24 11:00 121/63 11/27/24 10:45 58 L 16 11/27/24 10:00 62 22 11/27/24 10:00 113/60 11/27/24 09:30 58 L 16 11/27/24 09:22 36.6 C 59 L 13 122/76 11/27/24 09:19 11/27/24 09:03 61 13 11/27/24 09:00 109/55 L 11/27/24 08:48 63 15 11/27/24 08:06 74 22 11/27/24 08:00 112/89 11/27/24 08:00 57 L 11/27/24 07:42 61 15 11/27/24 07:18 69 23 11/27/24 07:00 119/71 11/27/24 06:51 56 L 16 11/27/24 06:45 56 L 12 11/27/24 06:00 58 L 16 127/55 L 122/76 11/27/24 05:02 106/61 11/27/24 05:00 63 21 11/27/24 04:37 36.4 C L 11/27/24 04:01 99/56 L 11/27/24 03:54 54 L 16 11/27/24 03:30 65 17 11/27/24 03:00 118/65 11/27/24 02:57 59 L 15 11/27/24 02:33 61 12 Pulse Ox O2 Del Method 11/27/24 14:00 97 11/27/24 13:06 96 11/27/24 12:15 97 11/27/24 12:00 11/27/24 11:48 98 11/27/24 11:06 98 11/27/24 11:00 11/27/24 10:45 96 11/27/24 10:00 95 Room Air 11/27/24 10:00 11/27/24 09:30 95 Room Air 11/27/24 09:22 97 11/27/24 09:19 Room Air 11/27/24 09:03 97 Room Air 11/27/24 09:00 11/27/24 08:48 97 11/27/24 08:06 98 11/27/24 08:00 11/27/24 08:00 11/27/24 07:42 97 11/27/24 07:18 94 11/27/24 07:00 11/27/24 06:51 98 11/27/24 06:45 96 Room Air 11/27/24 06:00 95 Room Air 11/27/24 05:02 11/27/24 05:00 96 11/27/24 04:37 11/27/24 04:01 11/27/24 03:54 94 11/27/24 03:30 93 11/27/24 03:00 11/27/24 02:57 95 11/27/24 02:33 94
--- NOTE | 2024-11-27 14:20 | Discharge Summary ---
Date of Service November 27, 2024 Admission HPI Per Admitting Provider Ms. Joshi is an elderly male who presents to Dr. Sims's vascular surgery clinic today for a follow-up visit to discuss CTA of the neck. Testing was recommended after carotid ultrasound imaging had indicated an increased degree of stenosis of his left ICA. He has a known right ICA occlusion. Patient continues to deny any new symptoms of cerebrovascular insufficiency including amaurosis, unilateral extremity weakness numbness or tingling, difficulty speaking or swallowing, facial droop, sudden onset confusion. His only complaint at this time is pain warmth and mild redness of his right knee which has been present for a few weeks. He states that he has a history of gout, but is unsure if this is what is going on. He denies any fevers chills nausea vomiting at home. He does have chronic joint pain at baseline. Admission Exam Per Admitting Provider Constitutional: In general patient is a healthy-appearing well-nourished well-d eveloped elderly male in no distress. Is alert and oriented without any focal deficits. His left carotid does demonstrate a faint bruit. His heart is regular, lungs are decreased but clear. Abdomen soft nontender with normoactive bowel sounds in upper quadrants. Distal pulses are +2. He has brisk capillary refill and no sign of distal ischemia. His right knee is swollen and warm to touch, without significant erythema noted. He does have +1 edema of the bilateral lower extremities at baseline. Principal Diagnosis 1. s/p L TCAR 2. L ICA stenosis Discharge Exam Constitutional WD/WN, vitals as above cooperative and comfortable; not in distress Respiratory normal respiratory effort, lungs clear to auscultation Auscultation: + diminished lung sounds Cardiovascular Rate/Rhythm: regular rate and regular rhythm Vessels: posterior tibial pulses present, dorsalis pedis pulses present, brachial pulses present and radial pulses present; + abnormal peripheral pulses Extremities: normal capillary refill; no edema Gastrointestinal (Abdomen) Inspection/Auscultation: abdomen normal to inspection and normal bowel sounds Percussion/Palpation: abdomen soft; abdomen nontender Musculoskeletal no cyanosis or clubbing, extremities motor strength 5/5 Skin no rashes, warm and dry (R groin puncture without hematoma or erythema) Neurologic moves all extremities and awake; no focal motor deficits and not confused Psychiatric A+Ox3, euthymic affect Discharge Data Allergies Allergy/AdvReac Type Severity Reaction Status Date / Time bee venom protein (honey bee) Allergy Unknown Unknown Rxn Verified 11/26/24 08:18 Iodinated Contrast Media Allergy nausea, Verified 11/26/24 08:18 "made him stagger" Consultations 11/26/24 12:59 Consult Regional Sales Coordinator Routine Procedures Performed Operation Date: 11/26/24 10:10 Actual Procedures p Left Transcarotid Artery Revascularization(Left) - Jamshid Sims MD Ordered Studies 11/26/24 07:16 EV angio carotid cerv LT Routine US EV guide vascular access Routine Hospital Course (1) Stenosis of left internal carotid artery: Pt doing well POD #1 after L TCAR. Stable VS and feeling well. OK for d/c home today. Total Time Total Time Spent Total Time Spent (In Minutes): 0 Discharge Plan Discharge Items Patient Disposition: Home - Self-Care Reason For Visit: Left Internal Carotid Aretery Stenosis Discharge Diagnosis: 1. s/p L TCAR 2. L ICA Stenosis Activity: Per Instructions section Non-emergency contact: Primary Care Provider and Surgeon Call non-emergency contact if: you have any medication questions, your symptoms worsen, your pain is not controlled, your pain is concerning for you, you have a fever, your wound has increased redness and your wound has increased drainage Follow-up/Referrals: Jamshid Sims MD [Physician] - (Follow up with Dr Sims or Elda Fierro PA-C, in 2 weeks for staple removal) Jaron Sandoval DO [Primary Care Provider] - (Follow up with your PCP within 2 weeks) Diet: Heart Healthy Addtl Attending Provider Instructions: SPECIAL CARE INSTRUCTIONS: Diet: * You may return to previous diet. Medications: * Continue to take Aspirin, plavix, and statin medications as directed. DO NOT STOP THESE MEDICATIONS WITHOUT SPEAKING TO DR SIMS'S OFFICE Incision Care: * You may shower, but do not rub incision. You may let the warm soapy water run over it. Be sure to dry the incision well after bathing. * Do not shave directly over the incision until it is healed. * DO NOT IMMERSE THE INCISION IN A TUB/POOL/etc. UNTIL HEALED. Restrictions: * Do not drive if you are still taking any narcotic pain medication. * Do not lift anything heavier than a gallon of milk for one week after going home. Possible Complications: * Numbness - It is normal to have some numbness around the incision. Numbness can extend beyond the incision to areas of the neck, ear and face. The numbness is due to bruising of nerves during the surgery and will gradually improve over a period of months. * Hoarseness/Difficulty Speaking and Swallowing - The bruising of nerves in the neck can also cause a hoarse voice, difficulty speaking or swallowing. This may improve over time, HOWEVER, if it continues for more than a few days please contact our office ([phone]). * Excessive Swelling - There will be some swelling immediately after surgery which usually resolves within one week. If you notice that the swelling is getting worse, notify your surgeon ([phone]). * Drainage/Bleeding - If there is any drainage or bleeding, it should be a very small amount (less than a teaspoon per day). If you have excessive bleeding or drainage from the incision, call your surgeon ([phone]) right away. ACTIVATION OF EMERGENCY MEDICAL SYSTEM: Call 911, immediately, if you experience any of the following: Warning Signs and Symptoms of Stroke: * Sudden numbness or weakness of the face, arm or leg, especially on one side of the body * Sudden confusion, trouble speaking or understanding * Sudden trouble seeing in one or both eyes * Sudden trouble walking, dizziness, loss of balance or coordination * Sudden severe headache with no cause Do not delay calling 911 if you experience any warning signs or symptoms of a stroke. Delay in seeking medical attention may affect what treatments can be given to you. Risk Factors for Stroke: You can reduce your chances of stroke by working with your medical provider to adopt a healthy lifestyle. Some specific ways to lower your chance of stroke are: * If you are a smoker, now is the time to stop smoking cigarettes * If you are diabetic, improve the control of your blood sugars * Avoid excessive amounts of alcohol * Control high blood pressure * Lose weight if you are overweight * Be sure to lead an active lifestyle * Eat a healthy diet low in salt, cholesterol and fat You should know about other risk factors for stroke that you are unable to control. These include: * Age 55 years or older * Male gender * Certain racial groups: , or / * Family History of Stroke, Mini stroke or Heart Attack * Sickle Cell Disease You will be receiving a call from the Vascular Surgery Nurse after you are discharged. FOLLOW UP VISIT: It is important for you to keep your follow up appointments with your medical provider. Keep any scheduled doctor appointments. Pending Studies at Discharge: No Stand-Alone Forms: My [facility], Smoking Cessation Medications and DC Order Prescriptions: Continued mecobalamin (vitamin B12) 1,000 mcg tablet,chewable 1,000 mcg PO DAILY spironolactone 25 mg tablet 25 mg PO QAM Qty: 90 3RF olmesartan 40 mg tablet 40 mg PO DAILY Qty: 90 3RF allopurinol 300 mg tablet 300 mg PO DAILY Qty: 90 3RF Patient Comments: 11/20/24-currently finishing script of 100mg tablets. taking 100mg BID until all used up aspirin 81 mg tablet,delayed release (DR/EC) 81 mg PO QAM metformin 1,000 mg tablet 1,000 mg PO BIDWMEAL Qty: 180 3RF glipizide 2.5 mg tablet extended release 24hr 2.5 mg PO QPM diltiazem HCl 90 mg tablet 180 mg PO BID Rx Instructions: TAKE 2 TABLETS BY MOUTH TWICE A DAY rosuvastatin 20 mg tablet 20 mg PO QPM clopidogrel 75 mg tablet 75 mg PO 1XD Discharge Orders: Discharge Order (Routine); Ordered 11/27/24 Ordered By: Elda Fierro Admission Data Admit Date/Time: 11/26/24 07:43 Attending Provider: Jamshid Sims Admit Provider: Jamshid Sims Primary Care Provider: Jaron Sandoval Other Providers: Warner Grant; Chandu Pineda; Darryl Isaacs; Preethi Parham; Dioni Mallory; Missy Jean; Yosef Carr Other Interventions: Discharge Summary Assessment (RN) Last Done: 11/27/24 09:22
== END 2024-11-27 14:42 | disposition home or self-care (01) | DRG 36 ==
LOC: ASU 08:10 → 1E 11:21
PROC: EV.TCAR (2024-11-26 10:10)